=== PATIENT | female | born 1970 | race Caucasian/White ===

== ENCOUNTER 2019-02-10 06:32 | Day surgery (SDC) | payer OTHER ==
[2019-02-10] MEDS ORDERED: Dextrose 5%-Lactated Ringers 1,000 ML IV SCH (07:00)
[2019-02-10] MEDS ORDERED: Glycopyrrolate 0.2 MG/ML 2 ML SDV IVPUSH ONE (07:15)
[2019-02-10] MEDS ORDERED: Propofol 200 MG/20 ML SDV ONE (07:33)
[2019-02-10] MEDS ORDERED: fentaNYL 100 MCG/2 ML SDV ONE (07:33)
[2019-02-10] MEDS ORDERED: Midazolam 1 MG/ML 2 ML SDV ONE (07:33)
[2019-02-10] MEDS ORDERED: Pantoprazole 40 MG Vial IVPUSH ONE (07:47)
--- NOTE | 2019-02-11 15:58 | OR ---
DATE OF PROCEDURE: 02/10/2019 PREOPERATIVE DIAGNOSES: Epigastric discomfort and history of hematemesis. POSTOPERATIVE DIAGNOSIS: Marginal ulcer, presently covered with fibrinous exudate. OPERATIVE PROCEDURE: Upper gastrointestinal endoscopy with biopsies of gastric pouch for CLOtest. ANESTHESIA: IV sedation. INDICATION FOR PROCEDURE: This is a 48-year-old status post a Chris-en-Y gastric bypass presenting with several-day history of upper abdominal discomfort and discomfort radiating up into the chest to some extent. She did have some nausea and hematemesis as well. A CT scan was obtained yesterday, which showed no acute intraabdominal processes, and the plan is to proceed with upper GI endoscopy with biopsies as indicated. Potential risks including bleeding and perforation were discussed, and the patient wishes to proceed. DETAILS OF PROCEDURE: The patient was taken to the operating room and placed in a left lateral decubitus position. IV sedation was administered after which the upper GI endoscope was passed orally through the length of the esophagus into the gastric pouch, from there through the gastrojejunostomy roughly 20 cm into the Chris limb. Findings included normal hypopharynx, larynx, upper esophageal sphincter, esophagus. The EG junction was likewise unremarkable. In the gastric pouch, there was a marginal ulcer present, beginning immediately at the gastrojejunostomy, this was the main area. Over about 1/4 of the circumference of the gastrojejunostomy was presently covered with fibrinous exudate. No blood or bleeding was seen. No stricturing or other problems were identified. Biopsies were then obtained from the gastric pouch and sent for CLOtest for H. pylori. Minimal bleeding from the biopsy site was seen and the procedure then concluded. The patient was given Protonix 40 IV in the recovery room and then begin 40 mg p.o. daily. She will be following up with Heather Duncan at [facility] on 02/16/2019. Davy Boogie MD /[id number]
== END 2019-02-10 09:20 | disposition home or self-care (01) ==
LOC: JP.SDS 06:32
PROVIDERS: ATTEND Surgery
DX: K28.9 Gastrojejunal ulcer, unspecified as acute or chronic, without hemorrhage or perforation (principal); K21.9 Gastro-esophageal reflux disease without esophagitis; G47.33 Obstructive sleep apnea (adult) (pediatric); I10 Essential (primary) hypertension; E66.9 Obesity, unspecified; Z68.38 Body mass index [BMI] 38.0-38.9, adult; Z88.0 Allergy status to penicillin; Z91.041 Radiographic dye allergy status; Z86.39 Personal history of other endocrine, nutritional and metabolic disease; Z86.79 Personal history of other diseases of the circulatory system; Z87.442 Personal history of urinary calculi; Z99.89 Dependence on other enabling machines and devices
CPT/HCPCS: 43239; 87081; C9113; J2250; J2704; J3010; J3490; J7042

== ENCOUNTER 2021-08-17 21:27 | Emergency (ER) | payer OTHER ==
--- NOTE | 2021-08-17 21:55 | EDM.PDOC ---
ED HPI GENERAL MEDICAL PROBLEM - General Chief Complaint: Lower Extremity Injury/Pain Stated Complaint: R FOOT INJURY Time Seen by Provider: 08/17/21 21:48 Source of Information: Reports: Patient History Limitations: Reports: No Limitations - History of Present Illness INITIAL COMMENTS - FREE TEXT/NARRATIVE: Jacquelyn is a 50-year-old female presenting to the ED for evaluation of right foot and ankle pain. The patient was at work at [employer] jumping up to valery some [employer] when she landed causing her to invert her foot and ankle. Since then has had increased pain and swelling and is barely able to bear any weight on her foot or ankle. She has pain along the track of the anterior talofibular ligament. Right Foot Pain Score (Numeric/FACES): 8 - Related Data Allergies Allergy/AdvReac Type Severity Reaction Status Date / Time Iodinated Contrast Media Allergy Shortness Verified 08/17/21 21:49 [Iodinated Contrast Media - of Breath IV Dye] Home Meds: Home Meds ARIPiprazole [Abilify] 20 mg PO DAILY 02/09/19 [History] Acetaminophen with Codeine [Tylenol with Codeine #3 Tablet] 1 tab PO Q4H PRN 02/09/19 [History] Amoxicillin 500 mg PO BID PRN 02/09/19 [History] Aspirin/Butalbital/Caffeine [Fiorinal 50-325-40 MG] 1 cap PO Q6H PRN 02/09/19 [History] Biotin 10 mg PO DAILY 02/09/19 [History] Clindamycin Phosphate [Cleocin T 1% Gel] 1 applic TOP DAILY 02/09/19 [History] Clotrimazole/Betamethasone Dip [Lotrisone Cream] 1 applic TOP BID PRN 02/09/19 [History] Cyanocobalamin (Vitamin B-12) [Cyanocobalamin Injection] 1,000 mcg IJ .[id number] 02/09/19 [History] Dextroamphetamine/Amphetamine [Adderall 20 mg Tablet] 80 mg PO ASDIRECTED PRN 02/09/19 [History] Docusate Sodium [Colace] 50 mg PO DAILY PRN 02/09/19 [History] FLUoxetine HCl [Prozac] 80 mg PO DAILY 02/09/19 [History] Ferrous Sulfate [Ferosul] 325 mg PO BIDAC 02/09/19 [History] Fluconazole [Diflucan] 150 mg PO ASDIRECTED PRN 02/09/19 [History] Fluocinonide [Lidex 0.05% Top Soln] 1 applic TOP ASDIRECTED 02/09/19 [History] Metoprolol Succinate [Toprol XL 100mg] 150 mg PO DAILY 02/09/19 [History] Mirtazapine [Remeron] 75 mg PO BEDTIME 02/09/19 [History] Modafinil [Provigil] 150 mg PO QAM 02/09/19 [History] Omeprazole 10 mg PO BID PRN 02/09/19 [History] Comb No.42/Folic Acid [Prena1 Chew Tablet] 1 tab PO DAILY 02/09/19 [History] SUMAtriptan [Imitrex Nasal] 1 spray MARK ASDIRECTED PRN 02/09/19 [History] SUMAtriptan [Imitrex] 50 mg PO ASDIRECTED PRN 02/09/19 [History] Spironolactone [Aldactone] 50 mg PO DAILY 02/09/19 [History] Temazepam [Restoril] 30 mg PO BEDTIME PRN 02/09/19 [History] Topiramate [Topamax] 50 mg PO BID 02/09/19 [History] lamoTRIgine [Lamictal] 250 mg PO BEDTIME 02/09/19 [History] Past Medical History HEENT History: Reports: Impaired Vision Cardiovascular History: Reports: Hypertension Respiratory History: Reports: Sleep Apnea Gastrointestinal History: Reports: GERD Genitourinary History: Reports: Renal Calculus ENVIRONMENT[employer] ECONOMIST History: Reports: Endometriosis Musculoskeletal History: Reports: None Neurological History: Reports: Concussion, Headaches, Chronic, Migraines Psychiatric History: Reports: Depression Endocrine/Metabolic History: Reports: None Hematologic History: Reports: None Immunologic History: Reports: None Dermatologic History: Reports: Other (See Below) Other Dermatologic History: DERMATITIS - Infectious Disease History Infectious Disease History: Reports: Chicken Pox - Past Surgical History Head Surgeries/Procedures: Reports: None HEENT Surgical History: Reports: LASIK Cardiovascular Surgical History: Reports: None Respiratory Surgical History: Reports: None GI Surgical History: Reports: Bariatric Procedure Female Surgical History: Reports: Section, Endometrial Ablation, Lithotripsy/ESWL Endocrine Surgical History: Reports: None Neurological Surgical History: Reports: None Musculoskeletal Surgical History: Reports: None Oncologic Surgical History: Reports: None Dermatological Surgical History: Reports: None Social & Family History - Family History Family Medical History: No Pertinent Family History - Caffeine Use Caffeine Use: Reports: Coffee, Soda Review of Systems - Review of Systems Review Of Systems: See Below Constitutional: Reports: No Symptoms Musculoskeletal: Reports: Foot Pain (Right foot), Joint Pain (Lateral right ankle), Joint Swelling (Right ankle) Neurological: Reports: Numbness (Right foot), Tingling (Right foot), Difficulty Walking (Pain with bearing weight on the right foot and ankle) ED EXAM, GENERAL - Physical Exam Exam: See Below Exam Limited By: No Limitations General Appearance: Alert, Mild Distress Peripheral Pulses: 2+: Posterior Tibial (R), Dorsalis Pedis (R) Extremities: Joint Swelling (Lateral right ankle), Limited Range of Motion (Limited range of motion with right ankle flexion, extension, inversion causing increasing pain), Other (Pain with palpation over the anterior lateral right foot along the anterior talofibular ligament tract) Neurological: Alert, Oriented, Normal Cognition, Sensory/Motor Deficit (Mild paresthesias of the right foot. Intact light touch. Intact motor.) Psychiatric: Normal Affect, Normal Mood Skin Exam: Warm, Dry, Intact, Normal Color. No: Ecchymosis, Erythema Course - Vital Signs Last Recorded V/S: Last Vital Signs Temp 36.6 C 08/17/21 22:02 Pulse 78 08/17/21 22:02 Resp 18 08/17/21 22:02 BP 130/93 H 08/17/21 22:02 Pulse Ox 99 08/17/21 22:02 - Orders/Labs/Meds Orders: Active Orders 24 hr Category Date Time Status Consult to Orthopedic Clinic [CONS] Routine Cons 08/17/21 22:19 Ordered Ankle Min 3V Rt [CR] Stat Exams 08/17/21 21:34 Taken Foot Comp Min 3V Rt [CR] Stat Exams 08/17/21 21:34 Taken - Radiology Interpretation Free Text/Narrative:: I reviewed the three-view images of the right ankle showing no acute abnormalities. I reviewed the three-view images of the right foot showing a transverse fracture of the proximal fifth metatarsal that is minimally displaced. - Re-Assessments/Exams Free Text/Narrative Re-Assessment/Exam: 08/17/21 22:26 the patient has 1/5 metatarsal fracture that is minimally displ aced. I discussed the case with Dr. Milligan and we will put the patient in a walking boot, nonweightbearing and on crutches to ambulate. I will send her home with hydrocodone for pain control. I have sent through a consult for her to see Dr. Milligan in follow-up. Indications to return to the ED were discussed. I told the patient to ice and elevate the foot and ankle to reduce swelling and pain. She may take Tylenol when not requiring the hydrocodone. Departure - Departure Time of Disposition: 22:27 Disposition: Home, Self-Care 01 Clinical Impression: Nondisplaced fracture of fifth right metatarsal bone Qualifiers: Encounter type: initial encounter Fracture type: closed Qualified Code(s): S92.354A - Nondisplaced fracture of fifth metatarsal bone, right foot, initial encounter for closed fracture - Discharge Information Instructions: Metatarsal Fracture Referrals: Dario Noe MD [Primary Care Provider] - Forms: ED Department Discharge Care Plan Goals: Please ice and elevate the foot and ankle to reduce swelling. I am sending you home with a prescription of hydrocodone for pain control. This is available in the [employer] [facility] machine so you may have it when you go home tonight. No weightbearing on the right foot until you follow-up with Dr. Milligan. Use crutches to ambulate and the walking boot to stabilize the foot and ankle. You may remove these for bathing. Sepsis Event Note (ED) - Focused Exam Vital Signs: Vital Signs Temp Pulse Resp BP Pulse Ox 08/17/21 22:02 36.6 C 78 18 130/93 H 99 - Problem List & Annotations (1) Nondisplaced fracture of fifth right metatarsal bone SNOMED Code(s): 445888458, 482975354 Code(s): S92.354A - NONDISP FX OF FIFTH METATARSAL BONE, RIGHT FOOT, INIT Status: Acute Priority: Medium Current Visit: Yes Qualifiers: Encounter type: initial encounter Fracture type: closed Qualified Code(s): S92.354A - Nondisplaced fracture of fifth metatarsal bone, right foot, initial encounter for closed fracture - Problem List Review Problem List Initiated/Reviewed/Updated: Yes - My Orders Last 24 Hours: My Active Orders 08/17/21 21:34 Ankle Min 3V Rt [CR] Stat Foot Comp Min 3V Rt [CR] Stat 08/17/21 22:19 Consult to Orthopedic Clinic [CONS] Routine - Assessment/Plan Last 24 Hours: My Active Orders 08/17/21 21:34 Ankle Min 3V Rt [CR] Stat Foot Comp Min 3V Rt [CR] Stat 08/17/21 22:19 Consult to Orthopedic Clinic [CONS] Routine
--- NOTE | 2021-08-18 09:18 | CR ---
Ankle Min 3V Rt CLINICAL HISTORY: Injury, lateral pain FINDINGS: The soft tissues are swollen laterally. There is a small ossific density off the tip of the fibula which is corticated and well demarcated is also tiny ossification of the medial malleolus. These are likely secondary ossification centers No acute fracture or dislocation is noted. Ankle mortise is intact. Articular surfaces are smooth Impression: Lateral soft tissue swelling No acute fracture or dislocation
--- NOTE | 2021-08-18 09:19 | CR ---
FOOT RIGHT 3 views CLINICAL HISTORY:Injury FINDINGS:There is a nondisplaced comminuted fracture of the fifth metatarsal. There is some spurring at the talonavicular joint. Impression: Nondisplaced fracture fifth metatarsal
== END 2021-08-17 22:53 | disposition home or self-care (01) ==
LOC: JP.ED 21:27
DX: S92.354A Nondisplaced fracture of fifth metatarsal bone, right foot, initial encounter for closed fracture (principal); I10 Essential (primary) hypertension; K21.9 Gastro-esophageal reflux disease without esophagitis; Z79.82 Long term (current) use of aspirin; Z79.899 Other long term (current) drug therapy; Z91.041 Radiographic dye allergy status; W17.89XA Other fall from one level to another, initial encounter; Y99.0 Civilian activity done for income or pay
CPT/HCPCS: 73610-26-RT; 73610-RT; 73630-26-RT; 73630-RT; 99001; 99283-25